=== PATIENT | male | born 1940 | race Caucasian/White ===

== ENCOUNTER → 2016-11-04 | Outpatient (CLI) | payer OTHER, BC ==
[~2016-11-04] MED LIST: ASPI81TA28 PO; ATOR10TA82 PO; CETI10TA84 PO; CHOL1000 PO; TAMS0.4C38 PO
[2016-11-04 09:52] LABS: % FREE PSA 18.5 %; FREE PSA 1.17 ng/ml; PROSTATE SPECIFIC ANTIGEN 6.34 ng/ml (0.000-4.000)
== END | disposition home or self-care (01) ==
LOC: C.LAB 08:00
PROVIDERS: ATTEND Urology
DX: N40.1 Benign prostatic hyperplasia with lower urinary tract symptoms (principal)

== ENCOUNTER → 2016-12-24 | Outpatient (CLI) | payer OTHER, BC ==
[~2016-12-24] MED LIST changes: +GADAVIST IV PRN
--- NOTE | 2016-12-24 11:04 | DIAGNOSTIC IMAGING REPORT ---
ADDENDUM Addendum for speech recognition error FINDINGS: Diffusion weighted images show punctate focus of acute ischemic change central LEFT THALAMUS. Electronically signed by: Stalin Bolton M.D. 12/25/2016 10:40 AM Dictated Date/Time: 12/25/2016 9:51 AM ORIGINAL REPORT MRI OF THE BRAIN WITHOUT AND WITH IV CONTRAST CLINICAL HISTORY: RECURRENT FACIAL NUMBNESS neuropathy COMPARISON STUDY: CT dated 06/30/2016 TECHNIQUE: Utilizing a 1.5 Jen magnet and dedicated coil, multiplanar, multiecho imaging of the brain was performed pre and postcontrast administration. IV administration of 8.5 mL of Gadavist contrast was uneventful. FINDINGS: Diffusion-weighted images show punctate focus of acute ischemic change central left bowel mass. This measures no more than 3 mm. It is identified on the proton density as well as T2 images. This would indicate a subacute phenomenon. Several foci of increased signal are identified in the periventricular deep white matter regions. These are also seen in the pontine region. This consistent with components of chronic small vessel change. No evidence for abnormal postcontrast enhancement. IMPRESSION: 1. Small subacute infarct measuring no more than 3 mm central left thalamus. 2. Moderate chronic small vessel change throughout both cerebral hemispheres as well as pontine region. 3. No evidence for abnormal postcontrast enhancement Electronically signed by: Stalin Bolton M.D. 12/24/2016 11:02 AM Dictated Date/Time: 12/24/2016 10:58 AM
== END | disposition home or self-care (01) ==
LOC: C.MRIBC 09:34
PROVIDERS: ATTEND Family Medicine
DX: R20.0 Anesthesia of skin (principal)

== ENCOUNTER → 2017-01-27 | Outpatient (CLI) | payer OTHER, BC ==
[~2017-01-27] MED LIST changes: -ATOR10TA82 PO; +ATOR10TA88 PO; -GADAVIST IV PRN
--- NOTE | 2017-01-27 14:16 | DIAGNOSTIC IMAGING REPORT ---
MRA HEAD WITHOUT CONTRAST HISTORY:76 [id number] Ischemic stroke, SEND TO [facility] COMPARISON: MRI of the brain 12/24/2016, CT head 06/30/2016. TECHNIQUE: MRA of the head was obtained with 3-D [id number] sequencing with MIP reformats. No intravenous contrast was used. FINDINGS: The bilateral imaged internal carotid arteries, M1 and A1 segments appear normal. The anterior communicating branch is within normal limits. Normal middle cerebral artery trifurcation is seen bilaterally. Vertebral arteries appear normal and form a normal and patent appearing basilar artery which terminates into normal and patent appearing P1 segments. No aneurysm, high-grade stenosis or proximal branch occlusion. IMPRESSION: MRA of the brain is within normal limits without high-grade stenosis, aneurysm or proximal branch occlusion identified. The above report was generated using voice recognition software. It may contain grammatical, syntax or spelling errors. Electronically signed by: Philippe White 01/27/2017 2:14 PM Dictated Date/Time: 01/27/2017 2:07 PM
--- NOTE | 2017-01-27 14:57 | DIAGNOSTIC IMAGING REPORT ---
ULTRASOUND OF THE CAROTID ARTERIES CLINICAL HISTORY: Stroke. COMPARISON STUDY: No priors. TECHNIQUE: Real-time, grayscale, and color Doppler sonography of the carotid arteries is performed. Images are reviewed in the transverse and longitudinal planes. FINDINGS: Blood pressure in the right arm measures 131/73 and blood pressure in the left arm measures 132/71. The carotid arteries are patent bilaterally and demonstrate antegrade flow. There is no significant atherosclerotic plaque identified. Normal doppler arterial waveforms are seen throughout. Velocity measurements are listed below. Common carotid peak systolic velocity (cm/sec): RIGHT: 82 LEFT: 104 ICA proximal peak systolic velocity (cm/sec): RIGHT: 63 LEFT: 71 ICA mid peak systolic velocity (cm/sec): RIGHT: 54 LEFT: 78 ICA distal peak systolic velocity (cm/sec): RIGHT: 60 LEFT: 45 ICA/CC peak systolic ratio: RIGHT: 0.8 LEFT: 0.8 Antegrade flow was shown in the vertebral arteries. The external carotid arteries are patent. IMPRESSION: 1. There is no sonographic evidence of hemodynamically significant stenosis in the right or left carotid arterial system. 2. Antegrade flow is shown in the vertebral arteries. Electronically signed by: Tray Carnes M.D. 01/27/2017 2:55 PM Dictated Date/Time: 01/27/2017 2:43 PM
--- NOTE | 2017-01-27 16:25 | ECHOCARDIOGRAM REPORT ---
*NOTICE TO RECEIVING [employer] This information is strictly Confidential and protected under [place] law. [place] law prohibits you from making any further disclosure of this information unless further disclosure is expressly permitted by the written consent of the person to whom it pertains or is authorized by law. A general authorization for the release of medical or other information is not sufficient for this purpose. Hospital accepts no responsibility if the information is made available to any other person, INCLUDING THE PATIENT. Interpretation Summary * Name: MARY AZEVEDO Study Date: 01/27/2017 02:03 PM BP: 132/61 mmHg * Patient Location: [facility] HR: 66 * : 1940 (M/d/yyyy) Gender: Male Height: 66 in * Age: 76 yrs Ethnicity: [place] Weight: 163 lb * Ordering Physician: Lorie Colby * Referring Physician: Lorie Colby * Performed By: Katt Montaño [facility] * * Reason For Study: ISCHEMIC STROKE * BSA: 1.8 m2 * -- Conclusions -- * 1. Normal left ventricular size and systolic function. EF 55-60%. No regional wall motion abnormalities. No left ventricular hypertrophy. Type 1 diastolic dysfunction. * 2. No visualized ASD or PFO via 2D imaging or color Doppler. No evidence of right to left inter atrial shunt following agitated saline injection. * 3. No significant valvular abnormalities. * 4. Normal estimated right ventricular systolic pressure; RVSP 21 mmHg. Procedure Details * A complete two-dimensional transthoracic echocardiogram was performed (2D, M-mode, Doppler and color flow Doppler). * A saline contrast injection was performed to assess for cardiac shunting. * The injection was performed through an intravenous line in the right arm. * The attending nurse who injected the saline contrast was THELMA MÁRQUEZ [facility], RN. * A total of 20 cc of agitated saline was given. Left Ventricle * Normal left ventricular size and systolic function. EF 55-60%. No regional wall motion abnormalities. No left ventricular hypertrophy. Type 1 diastolic dysfunction. Right Ventricle * The right ventricle is normal in size and function. * The right ventricular systolic function is normal as assessed by tricuspid annular plane systolic excursion (TAPSE) (normal >1.5 cm). Atria * The left atrial size is normal. * Right atrial size is normal. * No visualized ASD or PFO via 2D imaging or color Doppler. No evidence of right to left inter atrial shunt following agitated saline injection. Mitral Valve * The mitral valve leaflets appear normal. There is no evidence of stenosis, fluttering, or prolapse. * There is no mitral regurgitation noted. Tricuspid Valve * The tricuspid valve is not well visualized, but is grossly normal. * There is no tricuspid stenosis. * There is trace tricuspid regurgitation. Aortic Valve * The aortic valve is trileaflet. * The aortic valve is normal in structure and function. * No hemodynamically significant valvular aortic stenosis. * Trace aortic regurgitation. Pulmonic Valve * The pulmonary valve is inadequately visualized, but the Doppler data is adequate for interpretation. * There is no pulmonic valvular stenosis. * There is no significant pulmonary regurgitation. Great Vessels * The aortic root is normal size. * Normal pulmonary venous flow pattern. Pericardium/Pleural * There is no pericardial effusion. Great Vessels * Normal inferior vena cava size and collapsability with sniff indicates a normal right atrial pressure of 3 mmHg MMode 2D Measurements and Calculations IVSd 1.1 cm IVSs 1.6 cm LVIDd 4.5 cm LVIDs 3.1 cm LVPWd 1.1 cm LVPWs 1.3 cm IVS/LVPW 1.1 FS 30.2 % EDV(Teich) 90.5 ml ESV(Teich) 38.3 ml EF(Teich) 57.7 % EDV(cubed) 88.7 ml ESV(cubed) 30.1 ml EF(cubed) 66.0 % % IVS thick 40.0 % % LVPW thick 18.5 % LV mass(C)d 173.7 grams LV mass(C)dI 94.8 grams/m\S\2 LV mass(C)s 153.3 grams LV mass(C)sI 83.6 grams/m\S\2 SV(Teich) 52.3 ml SI(Teich) 28.5 ml/m\S\2 SV(cubed) 58.6 ml SI(cubed) 32.0 ml/m\S\2 Ao root diam 3.0 cm Ao root area 7.1 cm\S\2 LA dimension 3.2 cm LA/Ao 1.1 LVOT diam 2.0 cm LVOT area 3.1 cm\S\2 LVAd ap4 28.4 cm\S\2 LVLd ap4 7.6 cm EDV(MOD-sp4) 87.0 ml EDV(sp4-el) 90.7 ml LVAs ap4 17.2 cm\S\2 LVLs ap4 6.2 cm ESV(MOD-sp4) 40.8 ml ESV(sp4-el) 40.4 ml EF(MOD-sp4) 53.1 % EF(sp4-el) 55.5 % SV(MOD-sp4) 46.2 ml SI(MOD-sp4) 25.2 ml/m\S\2 SV(sp4-el) 50.3 ml SI(sp4-el) 27.4 ml/m\S\2 Doppler Measurements and Calculations MV E max roscoe 52.8 cm/sec MV A max roscoe 103.5 cm/sec MV E/A 0.51 MV P1/2t max roscoe 60.4 cm/sec MV P1/2t 61.9 msec MVA(P1/2t) 3.6 cm\S\2 MV dec slope 285.8 cm/sec\S\2 MV dec time 0.24 sec Ao V2 max 101.9 cm/sec Ao max PG 4.2 mmHg Ao max PG (full) 1.3 mmHg BARBARA(V,A) 2.5 cm\S\2 BARBARA(V,D) 2.5 cm\S\2 LV V1 max PG 2.9 mmHg LV V1 max 84.7 cm/sec PA V2 max 120.1 cm/sec PA max PG 5.8 mmHg TR max roscoe 212.3 cm/sec RVSP(TR) 21.0 mmHg RAP systole 3.0 mmHg
--- NOTE | 2017-02-11 07:28 | CODING QUERY MEDICAL NECESSITY ---
CQSUPPORTING DIAGNOSIS NEEDED A supporting diagnosis is required for the test/procedure performed on this patient in order for us to be reimbursed by the patient's insurance. Please provide a supporting diagnosis for the following test/procedure listed below next to the test name along with your signature. *If there is no additional diagnosis for this patient that would support the following test/procedure please document that below next to the test/procedure. Test(s)/Procedure(s) that require a supporting diagnosis: DOS 01/27/17 MAGNETIC RESONANCE ANGIOGRAPHY ORDERED BY BRITTA BEYER Provider Signature: Date: Thank you Dede Katz Health Information Management Once completed, please kindly fax back to [phone] For questions please call [phone]
== END | disposition home or self-care (01) ==
LOC: C.MRI 13:01
PROVIDERS: ATTEND Physician Assistant
DX: I63.8 Other cerebral infarction (principal); R20.2 Paresthesia of skin

== ENCOUNTER → 2017-11-17 | Outpatient (CLI) | payer OTHER, BC ==
[~2017-11-17] MED LIST changes: +ATOR10TA82 PO; -ATOR10TA88 PO
== END | disposition home or self-care (01) ==
LOC: C.LAB 10:51
PROVIDERS: ATTEND Urology
DX: Z12.5 Encounter for screening for malignant neoplasm of prostate (principal)